=== PATIENT | male | born 1965 | race Caucasian/White ===

== ENCOUNTER 2023-06-08 21:52 | Emergency (ER) | payer MEDICAID ==
[~2023-06-08] VITALS: Ht 175.3 cm; Wt 79.0 kg
[2023-06-09] MEDS ORDERED: acetaminophen 325mg tablet PO ONE (04:15)
[2023-06-09] MEDS ORDERED: ibuprofen tablet 400 MG TABLET PO ONE (04:15)
[2023-06-09 04:46] VITALS: BP 115/74; PULSE 85; RESP 16; TEMP 97.9; O2SAT 98
== END 2023-06-09 04:48 | disposition home or self-care (01) ==
LOC: ER 21:53
DX: S90.821A Blister (nonthermal), right foot, initial encounter (principal); M79.672 Pain in left foot; Z98.890 Other specified postprocedural states; X58.XXXA Exposure to other specified factors, initial encounter; Y93.89 Activity, other specified; Y92.89 Other specified places as the place of occurrence of the external cause; Y99.8 Other external cause status
CPT/HCPCS: 99283